=== PATIENT | male | born 1960 | race Caucasian/White ===

== ENCOUNTER 2017-12-18 15:47 | Outpatient (CLI) | payer MEDICARE, MEDICAID | END 2017-12-18 15:48 | disposition home or self-care (01) | LOC: BICRAD 15:47 | PROVIDERS: ATTEND Family Medicine | DX: J44.9 Chronic obstructive pulmonary disease, unspecified (principal); M25.512 Pain in left shoulder; M25.522 Pain in left elbow; M81.0 Age-related osteoporosis without current pathological fracture; M79.602 Pain in left arm; M19.012 Primary osteoarthritis, left shoulder | CPT/HCPCS: 71046 ==

== ENCOUNTER 2019-01-13 21:58 | Inpatient (IN) | payer MEDICARE, MEDICAID ==
[~2019-01-13 21:58] MED LIST: ISOVUE-370 76%-LOCM 1 ML ONE
[2019-01-13] MEDS ORDERED: Morphine 4 MG/ML VIAL ONE ×2 (22:18→23:35)
[2019-01-13] MEDS ORDERED: Ondansetron PF 4 MG/2 ML Vial ONE (22:18)
[2019-01-13 22:54] LABS: Hemoglobin 15.2 g/dL (14.0-18.0); Mean Corpuscular HGB CONC 34.1 g/dL (32.0-36.0); Mean Corpuscular Hemoglobin 33.6 pg (27.0-31.0); Mean Corpuscular Volume 98.5 fL (78.0-98.0); Platelet Count 276 thou/uL (130-400); RBC Distribution Width 12.1 % (11.5-14.5); Red Blood Cell (RBC) Count 4.53 mill/uL (4.70-6.10); White Blood Cell (WBC) Count 19.4 thou/uL (4.8-10.8)
[2019-01-13 23:16] LABS: Band 10 % (5-11); Lymphocytes 8 % (21-51); MDiff Complete? YES; Monocytes 5 % (0-10); Neutrophil 77 % (42-75)
[2019-01-13 23:17] LABS: ALT (SGPT) 20 U/L (8-55); AST (SGOT) 36 U/L (5-34); Albumin 3.8 g/dL (3.5-5.0); Alkaline Phosphatase 81 U/L (40-150); Anion Gap 15 mmol/L (10-20); BUN (Urea Nitrogen) 11 mg/dL (8.4-25.7); Bilirubin, Total 0.7 mg/dL (0.2-1.2); Calc. Creatinine Clearance 0 mL/min (70-130); Calcium 9.4 mg/dL (7.8-10.44); Carbon Dioxide 22 mmol/L (22-29); Chloride 102 mmol/L (98-107); Estimated GFR-MDRD 36; Globulin 3.7 g/dL (2.4-3.5); Glucose 104 mg/dL (70-105); Potassium 4.4 mmol/L (3.5-5.1); Protein, Total 7.5 g/dL (6.0-8.3); Sodium 135 mmol/L (136-145)
--- NOTE | 2019-01-13 23:24 | RAD ---
FRONTAL RADIOGRAPH CHEST: 01/13/2019 HISTORY: Fall. Trauma. Pain. FINDINGS: Mild increased linear interstitial density. No pneumothorax or pleural fluid. No lobar consolidatio n or alveolar edema. IMPRESSION: No radiographic evidence of acute cardiopulmonary disease. POS: OFF
--- NOTE | 2019-01-13 23:25 | RAD ---
RIGHT SHOULDER THREE VIEWS: 01/13/2019 HISTORY: Injury. Trauma. Pain. COMPARISON: None. FINDINGS: There is a markedly comminuted fracture with impaction involving the femoral head and neck. There ar e medially and laterally displaced fracture fragments. No evidence for dislocation. No widening of the AC or CC interspace. IMPRESSION: Impacted and markedly comminuted displaced humeral head/neck fracture. Orthopedic consultation advis ed. POS: OFF
--- NOTE | 2019-01-13 23:27 | RAD ---
RIGHT HIP TWO VIEWS: 01/13/2019 HISTORY: Fall. Trauma. Pain. COMPARISON: None. FINDINGS: There is a questionable nondisplaced fracture involving the inferior pubic ramus on the right. No evidence for dislocation of the right hip. There is a questionable fracture involving the medial aspect of the right acetabulum. IMPRESSION: Findings suspicious for a nondisplaced fracture involving the inferior pubic ramus on the right. Sub tle medial acetabular fracture suspected as well. CT advised POS: OFF
--- NOTE | 2019-01-13 23:29 | RAD ---
LUMBAR SPINE THREE VIEWS: 01/13/2019 HISTORY: Fall. Trauma. Pain. COMPARISON: None. FINDINGS: There is subtle cortical irregularity involving the anterior aspect of the L2 vertebral body, which c ould represent a subtle compression fracture. There is mild irregularity involving the anterior-supe rior corner of the L5 vertebral body, which could also represent a subtle compression fracture. Ther e is mild anterolisthesis at L4-L5, measuring approximately 3-4 mm. IMPRESSION: Possible fractures of L2 and L5. CT suggested. POS: OFF
--- NOTE | 2019-01-14 00:05 | CT ---
CT HEAD WITHOUT CONTRAST: 01/13/2019 HISTORY: Fall. Trauma. Pain. COMPARISON: None. TECHNIQUE: Axial CT imaging at 5 mm intervals, from the vertex through the skull base, without contrast. FINDINGS: The visualized paranasal sinuses and mastoid air cells are well aerated. There is no displaced enrrique rial fracture. No intracranial hemorrhage, midline shift, mass effect, or ventricular enlargement. IMPRESSION: No acute findings. POS: OFF
[2019-01-14] MEDS ORDERED: Dextrose 5% in Water 1,000 ML IV PRN (01:27)
[2019-01-14] MEDS ORDERED: Dextrose 50% Abboject 50 ML SYRINGE SLOW IVP PRN (01:27)
[2019-01-14] MEDS ORDERED: Morphine 2 MG/ML SYRINGE SLOW IVP PRN (01:27)
[2019-01-14] MEDS ORDERED: hydrALAZINE 20 MG/ML VIAL SLOW IVP PRN (01:27)
[2019-01-14] MEDS ORDERED: Ondansetron PF 4 MG/2 ML Vial IVP PRN (01:27)
[2019-01-14] MEDS ORDERED: Ondansetron ODT 4 MG TAB PO PRN (01:27)
[2019-01-14] MEDS: Acetaminophen 1,000 MG in Premix Bag 1 BAG IVPB SCH ×4 (02:27→21:11)
--- NOTE | 2019-01-14 03:14 | HP ---
REQUESTING PHYSICIAN: Dr. Mehta. CONSULTATIONS: 1. Orthopedics, Dr. West. 2. Neurosurgery, Dr. Pike. HISTORY OF PRESENT ILLNESS: The patient is a 58-year-old man who was reportedly working on the top of his trailer this evening when he fell landing on his right side. He denies any loss of consciousness, but states that he was unable to ambulate, so he had to crawl to where his phone was and was finally able to call for help. He was brought to the emergency department by ground EMS, where he underwent evaluation and examination and was noted to have fractures to his right shoulder right proximal humerus, pubic rami fracture and thoracic compression fracture, at which time we were asked to evaluate the patient for admission and obtain Orthopedic and Neurosurgical consultations. ALLERGIES: NONE. CURRENT MEDICATIONS: The patient does not remember his medications, but does remember the pharmacy and has his doctor's phone number. We will obtain these in the morning. PAST MEDICAL HISTORY: Hypertension, COPD, does not wear home oxygen, recent diagnosis of "skin cancer" to right shoulder, anxiety, depression, bipolar disorder. PAST SURGICAL HISTORY: Tonsillectomy. SOCIAL HISTORY: The patient smokes at most half a pack of cigarettes per day. Denies drug or alcohol use. He lives at home alone. He is unemployed due to disability. PHYSICAL EXAMINATION: VITAL SIGNS: Blood pressure 138/82, heart rate 73, respirations 20, oxygen saturation 100% on room air, temperature 98.9. GENERAL: The patient is resting comfortably in bed. He is awake, alert, and oriented x2. Atkinson Coma Scale is 15. The patient does have difficulty remembering his medical history, but otherwise again his Oliverio Coma Scale is 15. HEENT: Head is normocephalic, atraumatic. Eyes: Extraocular motions intact. PERRLA bilaterally. Ears are atraumatic without discharge. Nose atraumatic without discharge. Oropharynx is clear. NECK: Nontender, trachea is midline. No JVD. CHEST: Clear to auscultation with good inspiratory and expiratory effort. The patient did state that during his deep inspiration it did hurt his right shoulder. HEART: Regular rate and rhythm. ABDOMEN: Soft, flat, nontender with active bowel sounds. PELVIS: Stable with tenderness to palpation to the right side that radiates into his groin area consistent with his pubic rami fracture. EXTREMITIES: Neurovascularly intact x4. Right upper extremity shows abrasion, which incidentally overlies his biopsy site for his skin cancer. There is contusion noted to the right lateral thigh. BACK: By report is tender to palpation to the thoracolumbar area in the midline with also some muscle spasms noted. LABORATORY FINDINGS: White blood cell count 19.4, hemoglobin 15.2, hematocrit 44.7, platelets 27. Sodium 135, potassium 4.4, chloride 102, CO2 of 22, BUN 11, creatinine 1.91, glucose 104, total bilirubin 0.7, AST 36, ALT 20, alkaline phosphatase 81. RADIOGRAPHIC FINDINGS: 1. CT of the brain without contrast shows no acute findings. 2. CT of the C-spine without contrast shows no fracture subluxation or bony lesion. 3. CT of the chest, abdomen, and pelvis with IV contrast shows T11 and T12 with mild vertebral body compression fractures. In the pelvis, there is noted to be a right superior inferior pubic rami fracture. 4. Views of the right shoulder show the impacted and markedly comminuted displaced humeral head/neck fracture. 5. AP chest x-ray shows shows no radiographic evidence of acute pulmonary disease. 6. Views of the right hip show findings suspicious for a nondisplaced fracture involving the inferior pubic ramus on the right. There is a subtle medial acetabular fracture suspected as well. 7. Views of the lumbar spine show possible fractures of L2 and L5. Of note, these were not demonstrated on his CT. ASSESSMENT: 1. Status post fall from 10-15 feet. 2. Proximal humerus fracture. 3. T10 and 11 mild vertebral body compression fractures. 4. Right superior and inferior pubic rami fractures. 5. Contusions. 6. Acute pain secondary to above. PLAN: Plan will be to admit the patient to the surgical floor. We will keep him n.p.o. we will have orthopedics review his radiographs and his CTs to determine, if surgical intervention is needed. Per conversation with Neurosurgery, his compression fractures will be treated with a TLSO brace. The patient will have pain control, pulmonary toilet, gastritis and mechanical VTE prophylaxis. We will have the nurses reconcile his medicines in the morning certainly to see if he is taking any blood thinner should surgery be indicated. The evaluation, examination, laboratory, and radiographic findings will be discussed with Dr. Zavala after this dictation. Job ID: [id number]
[2019-01-14] MEDS ORDERED: Acetaminophen 1,000 MG in Premix Bag 1 BAG IVPB SCH (06:00)
[2019-01-14 07:04] LABS: #Basophils 0.1 thou/uL (0.0-0.2); #Eosinphils 0.2 thou/uL (0.0-0.7); #Lymphocytes 2.7 thou/uL (1.20-3.40); #Monocytes 0.9 thou/uL (0.11-0.59); #Neutrophils 6.4 thou/uL (1.40-6.50); %Basophils 0.5 % (0.0-1.0); %Eosinophils 1.7 % (0.0-10.0); %Lymphocytes 26.3 % (21.0-51.0); %Monocytes 8.7 % (0.0-10.0); %Neutrophils 62.9 % (42.0-75.0); Hemoglobin 13.2 g/dL (14.0-18.0); Mean Corpuscular HGB CONC 34.1 g/dL (32.0-36.0); Mean Corpuscular Hemoglobin 34.1 pg (27.0-31.0); Mean Platelet Volume 7.3 fL (7.4-10.4); Platelet Count 237 thou/uL (130-400); RBC Distribution Width 11.9 % (11.5-14.5); Red Blood Cell (RBC) Count 3.88 mill/uL (4.70-6.10); White Blood Cell (WBC) Count 10.2 thou/uL (4.8-10.8)
[2019-01-14 07:23] LABS: Anion Gap 13 mmol/L (10-20); BUN (Urea Nitrogen) 12 mg/dL (8.4-25.7); Calc. Creatinine Clearance 0 mL/min (70-130); Calcium 8.6 mg/dL (7.8-10.44); Carbon Dioxide 23 mmol/L (22-29); Chloride 103 mmol/L (98-107); Estimated GFR-MDRD 51; Glucose 101 mg/dL (70-105); Potassium 3.8 mmol/L (3.5-5.1); Sodium 135 mmol/L (136-145)
--- NOTE | 2019-01-14 07:38 | CT ---
PRELIMINARY REPORT/[facility]/EMERGENCY AFTER HOURS PROCEDURE: EXAM: CT Cervical Spine Without Contrast EXAM DATE/TIME: 01/13/2019 11:54 PM CLINICAL HISTORY: 58 years old, male; Injury or trauma; Initial encounter; Blunt trauma; Patient HX: Er26; No previous on pacs; M58 presents to ED with C/O R shoulder pain and R hip pain S/P falling off roof x1.5 hours p ta. EMS reports that PT was working on his roof when he slipped and fell off, approx. 10 feet. PT reports that he landed on his right side and did not hit head, negative loc. PT denies headache and neck chencho n. PT reports R arm pain and lower back pain. TECHNIQUE: Imaging protocol: Computed tomography images of the cervical spine without contrast. Coronal and sagi ttal reformatted images were created and reviewed. COMPARISON: No relevant prior studies available. FINDINGS: Vertebrae: No acute fracture. Normal alignment. Discs/Spinal canal/Neural foramina: Multilevel degenerative changes of the spine most notable at C6-7 with left neuroforaminal narrowing. Soft tissues: No acute findings. IMPRESSION: No acute fracture. Cervical spondylosis. Thank you for allowing us to participate in the care of your patient. Dictated and Authenticated by: Isidro Stewart MD 01/14/2019 1:01 AM Central Time ([place] & [place]) FINAL REPORT CT CERVICAL SPINE NONCONTRAST: DATE: 01/13/2019. TIME: Performed on an emergency basis at 2356 hours. HISTORY: Fall. Neck injury. FINDINGS: Agree with the preliminary report by Dr. Stewart from [facility]. No acute osseous abnormalitie s are demonstrated. There are degenerative changes throughout the cervical spine. POS: [facility]
--- NOTE | 2019-01-14 07:46 | CT ---
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 10 feet. PT reports that he landed on his right side and did not hit head, negative loc. PT denies headache and neck pain. PT reports R arm pain and lower back pain. TECHNIQUE: Imaging protocol: Axial computed tomography images of the chest with intravenous contrast. Coronal a nd sagittal reformatted images were created and reviewed. COMPARISON: No relevant prior studies available. FINDINGS: Lungs: No acute findings. No mass. No consolidation. Few small peripheral/perifissural nonspecific nodular opacities, probably benign. Pleural space: No pneumothorax. No pleural effusion. Heart: Normal heart size. Coronary calcifications. No pericardial effusion. Aorta: No acute findings. No aortic aneurysm. Lymph nodes: No significant adenopathy. Bones/joints: Mild acute T12 and possible T11 vertebral body compression fractures. No spinal canal narrowing. Degenerative changes of the spine. Right humeral neck displaced fracture. Soft tissues: No acute findings. IMPRESSION: Mild acute T12 and possible T11 vertebral body compression fractures. Right humeral neck displaced fr acture. Coronary calcifications. THIS REPORT CONTAINS FINDINGS THAT MAY BE CRITICAL TO PATIENT CARE. The findings were verbally communicated via telephone conference with Bita Mehta at 12:51 AM CDT on 01/14/2019. The findings were acknowledged and understood. 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 EMS reports that PT was working on his roof when he slipped and fell off, approx. 10 feet. PT reports that he landed on his right side and did not hit head, negative loc. PT denies headache and neck pain. PT reports R arm pain and lower back pain. TECHNIQUE: Imaging protocol: Axial computed tomography images of the abdomen and pelvis with intravenous contras t. Coronal and sagittal reformatted images were created and reviewed. COMPARISON: No relevant prior studies available. Atherosclerotic calcifications. No aortic aneurysm. FINDINGS: Liver: No acute findings. No mass. Gallbladder and bile ducts: No calcified stones. No ductal dilation. Pancreas: No acute findings. No mass. No ductal dilation. Spleen: No acute findings. No mass. Adrenals: No acute findings. No mass. Kidneys and ureters: No acute findings. No mass. No hydronephrosis. Left renal cortical cyst. Stomach and bowel: No obstruction. Appendix: No evidence of appendicitis. Intraperitoneal space: No free air. Vasculature: No acute findings. No abdominal aortic aneurysm. Lymph nodes: No significant lymphadenopathy. Bladder: No acute findings. Reproductive: No acute findings. Bones/joints: Nondisplaced acute fractures of the right superior and inferior pubic rami. Minimal adj acent intrapelvic hemorrhage. Soft tissues: No acute findings. IMPRESSION: Right superior and inferior pubic rami fractures. Otherwise no acute findings. Thank you for allowing us to participate in the care of your patient. Dictated and Authenticated by: Isidro Stewart MD 01/14/2019 1:20 AM Central Time ([place] & [place]) FINAL REPORT CT CHEST WITH IV CONTRAST CT ABDOMEN AND PELVIS WITH IV CONTRAST CT THORACIC SPINE NONCONTRAST CT LUMBAR SPINE NONCONTRAST: DATE: 01/13/2019. TIME: Performed on an emergency basis at 2358 hours. HISTORY: Fall. Chest injury. Abdomen injury. Back injury. FINDINGS: Agree with the preliminary report by Dr. Stewart from [facility]. Comminuted fracture of the ri ght humeral head and neck. Nondisplaced fractures of the right pubic rami. Minimal compression of t he T12 vertebral body. Possible acute fracture. Age-indeterminate. Possible involvement of T11. POS: [facility]
--- NOTE | 2019-01-14 08:01 | CON ---
DATE OF CONSULTATION: This is Crys Aldrich PA-C dictating a report for Jovanny Pike MD. HISTORY OF PRESENT ILLNESS: The patient is a 58-year-old male, who presented to the emergency department after a fall off the top of his trailer, which was approximately 10 to 15 feet. The patient reports landed on the right side. Denies any LOC. He was evaluated with trauma scans and was found to have a right proximal humerus fracture, right superior and inferior pubic rami fractures, T10 and T11 mild compression fractures, and cortical irregularities at T9, T10, L2, and L5. The patient did not have any neuro deficits per the ER team and was admitted by the Trauma Service for further management of his injuries. Neurosurgery was consulted for evaluation of these compression fractures. I visited the patient in the ER for further evaluation of these injuries. PAST MEDICAL HISTORY: Hypertension, COPD, anxiety, depression, and bipolar disorder. PAST SURGICAL HISTORY: Tonsillectomy. SOCIAL HISTORY: The patient smokes half pack per day. Does not drink or use any drugs. Lives at home and alone. ALLERGIES: HE HAS NO KNOWN DRUG ALLERGIES. PHYSICAL EXAMINATION: CONSTITUTIONAL: The patient is awake, alert, in no acute distress. He is resting comfortably in the bed. He has a GCS of 15. HEENT: Head; normocephalic, atraumatic. Eyes; PERRLA. Extraocular movements intact. ENT; oral mucosa is pink, intact, and moist. He has normal voice. NECK: Nontender to palpation. Free active range of motion. No meningismus or nuchal rigidity. CARDIAC: Regular rate and rhythm. PULMONARY: Symmetric chest expansion. No evidence of dyspnea. MUSCULOSKELETAL: He has some abrasions over the right shoulder region. Does have pain with range of motion of the right upper extremity. However, he has no focal neurologic deficits that are appreciated in any of the extremities. His reflexes are intact. NEURO: A and O x4. No focal neurologic deficits are appreciated. ASSESSMENT AND PLAN: This is a 58-year-old male, status post fall [address] head and C-spine were negative for acute injuries. He was found to have T11 and T12 compression fractures on CT chest, abdomen, and pelvis. He is also noted to have some irregularity on L-spine x-rays at L2 and L5. I also appreciate some slight irregularities at T9 and T10. I feel that these are likely counter sales representative of degenerative changes rather than acute injury. For his T11 and T12 compression fractures, we will plan to treat with TLSO bracing. He should wear the brace for all out of bed activities. I have advised that he can take it off when he is in bed and to shower. We will plan to follow up with the patient in approximately 4 weeks with repeat set of x-rays. Please reach out to Neurosurgery for additional questions or concerns. Job ID: [id number]
[2019-01-14] MEDS: Sodium Chloride 0.9% 1,000 ML IV SCH ×3 (08:11→18:05)
--- NOTE | 2019-01-14 08:22 | CON ---
DATE OF CONSULTATION: 01/14/2019 This is Nely Castillo PA-C dictating a report for Raúl West MD. REQUESTING PHYSICIAN: Trauma Services. CONSULTING PHYSICIAN: Raúl West MD. REASON FOR CONSULTATION: Right proximal humerus fracture and right inferior and superior pubic rami fracture. HISTORY OF PRESENT ILLNESS: This is a 58-year-old gentleman who was cleaning the gutters on the top of his trailer yesterday evening when he fell landing on to his right side. The fall was approximately 10-15 feet. No loss of consciousness at that time, but was unable to ambulate, so he had to crawl to the phone in order to call for help. Upon workup in our emergency facility, the patient was found to have right proximal humerus fracture, right pubic rami fracture, and thoracic compression fractures. We have been consulted for the right proximal humerus fracture and the right pubic rami fracture. Currently at bedside, the patient states he has a great deal of pain in his right shoulder and is unable to put weight on his right leg. He denies any numbness or tingling. He denies any history of previous surgeries to either of these joints. He states he is ambidextrous, mainly uses his left hand. PAST MEDICAL HISTORY: Hypertension, COPD, recent diagnosis of skin cancer to right shoulder, anxiety, depression, bipolar disorder, and cirrhosis of the liver. PAST SURGICAL HISTORY: Tonsillectomy. SOCIAL HISTORY: The patient states that he is trying to quit smoking and uses a patch, although he does smoke slightly less than a pack of cigarettes a day, former heavy alcohol use, quit in 2013. Lives at home alone, unemployed secondary to disability. ALLERGIES: NONE. FAMILY HISTORY: Reviewed and noncontributory. PHYSICAL EXAMINATION: VITAL SIGNS: Blood pressure 138/82, heart rate 73, respirations 20, oxygen saturation 100% on room air, and temperature of 98.9. GENERAL: The patient is awake and alert. He is resting comfortably in bed. He is pleasant and converses well upon physical examination. HEENT: Head is normocephalic and atraumatic. NECK: Supple. Trachea midline. LUNGS: Breathing is nonlabored. EXTREMITIES: The right lower extremity is evaluated. The patient does have pain upon any movement passive or active. Range of motion specifically not assessed in the hip. The patient is able to move his all toes and move his ankle. Distal neurovascular status is intact. Skin is intact. Evaluation of the right upper extremity shows tenderness to palpation along the proximal humerus. Range of motion not assessed in the shoulder. The patient is able to flex and extend at the wrist and move all digits. Distal neurovascular status is intact. Left upper and left lower extremities also evaluated. No obvious deformities or injuries are noted. IMAGING STUDIES: Radiographic findings including views of the right shoulder show an impacted and comminuted displaced humeral head and neck fracture. Views of the right hip are suspicious for fracture involving the pubic rami, however, after further evaluation with a CT evaluation, this is felt that the fracture actually is a nondisplaced acetabulum fracture. Films reviewed with Dr. West. ASSESSMENT: 1. Right nondisplaced acetabulum fracture. 2. Right proximal humerus fracture involving head and neck. PLAN: At this time, the patient's right acetabulum fracture will be nonoperative. We will keep the patient nonweightbearing to the right lower extremity in order to allow this to heal. No surgical intervention is anticipated for this fracture. With regard to the right shoulder, this is a markedly comminuted and displaced fracture. This will need a reverse total shoulder replacement in the future, however, we will allow this to heal in order to have bone stalk for this surgery in the near future. We will place the patient in a sling to the right upper extremity for comfort. Pain control. We will plan to follow him as an outpatient and schedule a reverse total shoulder replacement as an outpatient in the future. The patient will be nonweightbearing to the right upper extremity as well. He may weightbear on the left side and work on [id number] transfers with physical therapy. No surgical intervention is anticipated at this hospital stay. Plan of care discussed in length with the patient at this time. He verbalized understanding. Job ID: [id number]
[2019-01-14] MEDS ORDERED: Famotidine 20 MG TAB ONE (10:56)
[2019-01-14] MEDS: Famotidine 20 MG TAB PO SCH (11:00)
[2019-01-14] MEDS ORDERED: Morphine 4 MG/ML VIAL ONE (11:15)
[2019-01-14] MEDS ORDERED: Ondansetron PF 4 MG/2 ML Vial ONE (11:15)
[2019-01-14] MEDS: Morphine 4 MG/ML VIAL SLOW IVP PRN ×2 (11:30→21:11)
[2019-01-14 14:16] VITALS: BMI 36.5
[2019-01-14] MEDS ORDERED: CEFAZOLIN 2 GM, IV Admixture Fee-Chemo 1 UNITS in Sodium Chloride 0.9% 100 ML IVPB SCH (16:15)
[2019-01-14 17:54] LABS: INR-International Normal Ratio 1.1; Prothrombin Time 14.4 SEC (12.0-14.7)
[2019-01-14] MEDS ORDERED: traMADol HCl 50 MG TAB PO PRN (18:12)
--- NOTE | 2019-01-14 19:17 | PRG ---
DATE OF SERVICE: 01/14/2019 SUBJECTIVE: This is a 58-year-old gentleman, who presented to the emergency room after fall off top of his trailer approximately 10 to 15 feet. The patient was diagnosed with right humeral fracture, T11-T12 compression fracture, right rami fracture. The patient has been evaluated by Neurosurgery Crys NORTH and decision is to treat T11-T12 compression fracture with TLSO brace. Orthopedic, MARY ANNE Mckay, evaluated the patient and decided the patient to go to the OR to fix right humeral fracture. Upon arrival, the patient appeared to have acute distress due to the pain of the right humeral fracture. Vital signs stable. GCS 15. He has been transferred to surgical floor awaiting for ortho surgery. OBJECTIVE: CONSTITUTIONAL: The patient is alert and awake, in minimal distress. GCS 15. PULMONARY: Breath sounds clear bilaterally on auscultation. Chest rise equal bilaterally. CARDIAC: Regular rate and rhythm. ABDOMEN: Soft and nondistended. Normal bowel sounds. EXTREMITIES: Right extremity, limited range of motion due to pain. Lower extremities, neurovascularly intact, normal range of motion. Left upper extremity, neurovascularly intact, normal range of motion. Right extremity, neurovascularly intact, but T11-T12 tender to touch LABORATORY DATA: White count 10.2, hemoglobin 13.2. Chemistry; sodium 135, potassium 3.8, creatinine 1.43. DIAGNOSES: 1. Status post fall from trailer. 2. Right humeral fracture. 3. T11-T12 compression fracture, conservative treatment by Neurosurgery. 4. Right rami fracture. 5. Acute kidney disease, mild. PLAN: Continue hydration. Continue pain control. The patient will go to the OR and have right humeral fracture fixed later today by Orthopedic. DVT prophylaxis tomorrow after surgery, gastritis prophylaxis upon arrival. Continue to follow up kidney function. Consult Orthopedic on pelvic fracture. Job ID: [id number] [facility]
[2019-01-14] MEDS: Gabapentin 100 MG CAP PO SCH (21:11)
[2019-01-15] MEDS: traMADol HCl 50 MG TAB PO SCH ×4 (00:09→17:17)
--- NOTE | 2019-01-15 03:04 | PRG ---
DATE OF SERVICE: 01/15/2019 SUBJECTIVE: The patient is currently on the surgical floor. He is status post fall from a trailer of about 10-15 feet landing on his right side. He sustained a fracture of his proximal humerus, T10-11 mild vertebral compression fracture and right superior inferior pubic rami fracture. The patient is currently awaiting surgical intervention of his right humerus fracture. His vertebral body fracture is going to be will be treated with a TLSO brace. The patient had no issues today. Currently, he is resting comfortably in bed. His shoulder is his only complaint at this time. PHYSICAL EXAMINATION: GENERAL: The patient is resting comfortably. He is awake, alert, responsive and appropriate. VITAL SIGNS: Stable. The patient is afebrile. LUNGS: Clear to auscultation with good inspiratory and expiratory effort. The patient states that when he takes a deep breath it does make his shoulder hurt. HEART: Regular rate and rhythm. ABDOMEN: Soft, flat with active bowel sounds. EXTREMITIES: Neurovascularly intact x4. PLAN: Will be to make the patient n.p.o. after midnight. Continue his pain management pulmonary toilet, gastritis, mechanical, VTE prophylaxis postoperatively. Begin work with Physical and Occupational Therapy and discuss placement. Job ID: [id number]
[2019-01-15] MEDS: Morphine 4 MG/ML VIAL SLOW IVP PRN (04:10)
[2019-01-15] MEDS: Sodium Chloride 0.9% 1,000 ML IV SCH ×2 (04:10→14:37)
[2019-01-15 05:03] LABS: #Eosinphils 0.4 thou/uL (0.0-0.7); #Lymphocytes 1.4 thou/uL (1.20-3.40); #Monocytes 0.8 thou/uL (0.11-0.59); #Neutrophils 7.8 thou/uL (1.40-6.50); %Basophils 0.3 % (0.0-1.0); %Eosinophils 4.2 % (0.0-10.0); %Monocytes 7.3 % (0.0-10.0); %Neutrophils 75.2 % (42.0-75.0); Hemoglobin 11.4 g/dL (14.0-18.0); Mean Corpuscular HGB CONC 33.2 g/dL (32.0-36.0); Mean Corpuscular Hemoglobin 33.5 pg (27.0-31.0); Mean Platelet Volume 7.3 fL (7.4-10.4); Platelet Count 181 thou/uL (130-400); RBC Distribution Width 11.8 % (11.5-14.5); Red Blood Cell (RBC) Count 3.41 mill/uL (4.70-6.10); White Blood Cell (WBC) Count 10.4 thou/uL (4.8-10.8)
[2019-01-15 05:22] LABS: Anion Gap 11 mmol/L (10-20); BUN (Urea Nitrogen) 11 mg/dL (8.4-25.7); Calc. Creatinine Clearance 128 mL/min (70-130); Carbon Dioxide 25 mmol/L (22-29); Chloride 104 mmol/L (98-107); Estimated GFR-MDRD 82; Glucose 94 mg/dL (70-105); Magnesium 1.7 mg/dL (1.6-2.6); Phosphorus 2.3 mg/dL (2.3-4.7); Potassium 3.6 mmol/L (3.5-5.1); Sodium 136 mmol/L (136-145)
[2019-01-15] MEDS: Acetaminophen 500 MG TAB PO SCH ×2 (05:39→14:39)
[2019-01-15] MEDS ORDERED: Fentanyl 100 MCG/2 ML VIAL ONE ×2 (06:47→06:56)
[2019-01-15] MEDS ORDERED: Midazolam HCl 2 mg/2 ml Vial ONE ×2 (06:47→06:56)
[2019-01-15] MEDS ORDERED: ceFAZolin Sodium (SDC) 2 GM/100 ML BAG ONE (06:47)
[2019-01-15] MEDS ORDERED: Acetaminophen 1,000 MG in Premix Bag 1 BAG IVPB SCH (07:15)
[2019-01-15] MEDS ORDERED: Promethazine HCl 25 MG/ML VIAL IM PRN ×2 (08:21→10:23)
[2019-01-15] MEDS ORDERED: HYDROcodone/Acetaminophen 10/325 mg Tablet PO PRN ×2 (08:21)
[2019-01-15] MEDS ORDERED: traMADol HCl 50 MG TAB PO PRN ×2 (08:21)
[2019-01-15] MEDS ORDERED: Ondansetron PF 4 MG/2 ML Vial IVP PRN (08:21)
[2019-01-15] MEDS ORDERED: Ropivacaine 0.2% 550 ML 550 ML NERVE BLCK SCH (08:21)
[2019-01-15] MEDS ORDERED: Zolpidem Tartrate 5 MG TAB PO PRN (08:21)
[2019-01-15] MEDS ORDERED: Fentanyl 100 MCG/2 ML VIAL IV PRN (08:22)
[2019-01-15] MEDS: Senokot S 8.6-50 MG TAB PO SCH ×2 (10:07→22:02)
[2019-01-15] MEDS: Polyethylene Glycol 3350 17 GM Packet PO SCH (10:07)
[2019-01-15] MEDS: Famotidine 20 MG TAB PO SCH ×2 (10:07→21:51)
[2019-01-15] MEDS: Gabapentin 100 MG CAP PO SCH ×2 (10:07→14:37)
[2019-01-15] MEDS ORDERED: Promethazine HCl 25 MG/ML VIAL SLOW IVP PRN (10:23)
[2019-01-15] MEDS ORDERED: Ondansetron HCl/PF 4 MG/2 ML Vial IVP PRN (10:23)
--- NOTE | 2019-01-15 12:24 | RAD ---
SINGLE VIEW RIGHT SHOULDER: Date: 01/15/19 COMPARISON: None. HISTORY: Right shoulder arthroplasty. FINDINGS: Single view of the right shoulder shows the patient to be status post right shoulder arthroplasty wit hout perihardware lucency or fracture. Overlying skin shanti are from recent surgery. IMPRESSION: Status post right shoulder arthroplasty without evidence of complication. POS: [facility]
[2019-01-15] MEDS: CEFAZOLIN 2 GM, Admixture Fee 1 EACH in Sodium Chloride 0.9% 100 ML IVPB SCH ×2 (15:44→22:02)
--- NOTE | 2019-01-15 16:28 | EKG ---
Test Reason : PREOP Blood Pressure : / mmHG Vent. Rate : 077 BPM Atrial Rate : 077 BPM P-R Int : 162 ms QRS Dur : 082 ms QT Int : 394 ms P-R-T Axes : 057 005 043 degrees QTc Int : 445 ms Normal sinus rhythm Normal ECG No previous ECGs available Confirmed by JULIANNE PICKETT, DR. Gonzáles ([id number]) on 01/15/2019 4:28:27 PM Referred By: ELOISA Confirmed By:DR. Eliecer WHITAKER MD
--- NOTE | 2019-01-15 16:48 | PRG ---
DATE OF SERVICE: 01/15/2019 SUBJECTIVE: This is a 58-year-old gentleman who presented to the emergency room after fall off from his trailer. The patient was diagnosed with right humeral fracture, T11-T12 compression fracture, right rami fracture. He had an ORIF on right humerus fracture today this morning. Postop, he is a little bit confused , but he is able to answer basic questions. Vitals signs stable. His thoracic fracture is treated with TLSO brace by Neurosurgery. Pelvic fracture is treated with conservative treatment. The patient has a history of depression and bipolar. He does not remember, which medication he took at home. Nurse is calling his pharmacy to obtain his medicine records. OBJECTIVE: CONSTITUTIONAL: The patient is alert and awake, in minimal distress. GCS 14. A little bit confused, but still able to answer correct basic information. RESPIRATORY: Breath sounds clear bilaterally. Chest rise equal bilaterally. CARDIAC: Regular rate and rhythm. ABDOMEN: Abdomen is soft and nondistended. Normal bowel sounds. EXTREMITIES: Right extremity is on sling, neurovascularly intact. Both lower extremity, normal range of motion, neurovascularly intact. Left extremity, normal range of motion, neurovascularly intact. NEUROLOGY: No focal neurology deficits. DIAGNOSES: 1. Status post fall from a trailer. 2. Right humeral fracture, postoperative open reduction and internal fixation day 0. 3. T11-T12 compression fracture, conservative treatment by Neurosurgery. 4. Right rami fracture, conservative treatment by Orthopedics. 5. Acute kidney disease, mild, resolved despite alcoholism withdrawal. PLAN: Continue pain control. Continue DVT and gastritis prophylaxis. Obtain medicine reconcile. Consult with Dr. Rajput on treating him with alcoholism withdrawal. Dr Rajput agreed with the plan Job ID: [id number] [facility]
[2019-01-15] MEDS ORDERED: Diazepam 5 MG TAB PO PRN (16:52)
[2019-01-15] MEDS ORDERED: Acetaminophen/Codeine 30-300mg Tablet PO PRN (16:52)
[2019-01-15] MEDS ORDERED: Ropivacaine 0.5% HCl/PF (150 MG/30 ML VIAL) ONE (16:56)
[2019-01-15] MEDS ORDERED: Ropivacaine 0.2% HCl/PF (40 MG/20 ML VIAL) ONE (16:56)
--- NOTE | 2019-01-15 16:56 | RAD ---
SINGLE VIEW RIGHT SHOULDER: Date: 01/15/19 HISTORY: Fall after surgery. COMPARISON: 01/15/19 and 01/13/19. FINDINGS: A single view of the right shoulder shows the patient to be status post right shoulder arthroplasty. There is a comminuted fracture of the proximal aspect of the humerus, but this fracture was likely pr esent prior to the arthroplasty. This has not changed significantly compared to the prior exam. The h umeral stem that is cemented shows no fracture surrounding the stem. The glenoid component of the pro sthesis is intact without focal abnormality. Overlying skin shanti are from recent surgery. IMPRESSION: Stable postoperative changes of the right shoulder status post arthroplasty. The comminuted fracture likely represents a fracture seen prior to the arthroplasty. POS: [facility]
--- NOTE | 2019-01-15 17:01 | OP ---
DATE OF PROCEDURE: 01/15/2019 OPERATION: Right reverse shoulder arthroplasty. PREOPERATIVE DIAGNOSIS: Right proximal humerus fracture with comminution. POSTOPERATIVE DIAGNOSIS: Right proximal humerus fracture with comminution. COMPLICATIONS: None. ESTIMATED BLOOD LOSS: 200 mL. DRY WALL FINISHER: Dr. Raúl West. IMPLANTS: Tornier Reverse Shoulder arthroplasty, size 29 mm standard base plate, 42-mm standard Glenosphere, reversed fracture stem size 13 mm x 130 mm, cemented, and 42-mm retentive +6 mm poly with a 9 mm spacer. INDICATIONS: Mr. Sanchez is a 58-year-old male who fell from a roof. He fractured his proximal humerus. He had a highly comminuted fracture with poor bone quality. He was indicated for reverse shoulder arthroplasty to restore the ability to use the arm and provide pain relief. Risks have been reviewed as well as benefits. Risks to include instability, pain, scarring, nerve or vascular injury, infection, and others. DESCRIPTION OF OPERATION: Mr. Sanchez was identified in the preoperative holding area. His correct extremity was marked. He was carried to the operating room. He was positioned supine. General anesthesia was induced. A multidisciplinary time-out was performed. The right upper extremity was prepped and draped in a sterile fashion. We began the procedure with a deltopectoral approach to the shoulder. We dissected down through the subcutaneous tissues to the deltopectoral fascia, which was opened. We then identified the cephalic vein. This was retracted laterally. We developed the deltopectoral interval. This allowed exposure to the deep tissues. We elevated the clavipectoral fascia and placed our self-retaining retractor. We released 1 cm of pec insertion. At this point, we performed a biceps tenotomy and then tenodesed the biceps tendon distally. We then elevated the subscapularis with a abhilash of bone. This was retracted medially. We elevated the greater tuberosity, which was fractured as well with the intact rotator cuff. At this point, we removed the humeral head, which was in multiple fragments. At this point, we proceeded to expose the glenoid. We cleared the glenoid cartilage as well as labral tissue. We placed our central pin. We over-reamed the pin. At this point, we then placed our large central screw through our base plate. We then placed a superior and an inferior screw in the glenoid. We had a very secure fit with good screw purchase. We then impacted a 42-mm Glenosphere. The screw was tightened appropriately. Next, we dislocated the humerus and exposed the proximal humerus. We then prepared the canal. We reamed up to a size 15 reamer. We accepted this for a size 13-mm cemented stem. We placed our cement restrictor. We then mixed cement on the back table and cemented our stem in appropriate position using the pectoralis insertion for height. Next, we trialed. A +9 poly gave the best stability. We used our 6-mm buildup in our poly component. This was again reduced. We checked stability. There was full range of motion. No impingement. The shoulder could not be easily dislocated. We thoroughly irrigated with copious lavage. At this point, we began closure. We closed the tuberosities together with a #5 Ethibond suture. This was also repaired down to the humerus. This restored the anatomy of the tuberosities. We then closed the superficial tissues in layers. A sterile dressing was applied. The patient was taken to the recovery room in good condition. Job ID: [id number]
[2019-01-15] MEDS ORDERED: PHENYLEPHRINE-NS 100 MCG/ML 10 ML SYRINGE ONE (17:12)
[2019-01-15] MEDS ORDERED: Rocuronium Bromide 10 MG/ML (10ML VIAL) ONE (17:12)
[2019-01-15] MEDS ORDERED: Ondansetron PF 4 MG/2 ML Vial ONE (17:12)
[2019-01-15] MEDS ORDERED: Ketorolac Tromethamine 30 MG/ML VIAL ONE (17:12)
[2019-01-15] MEDS ORDERED: ePHEDrine 50 MG/ML VIAL ONE (17:12)
[2019-01-15] MEDS ORDERED: Lidocaine 1% PF 5 ML VIAL ONE (17:12)
[2019-01-15] MEDS ORDERED: PROPOFOL 200 MG/20 ML VIAL ONE (17:12)
[2019-01-15] MEDS: Ibuprofen 600 MG TAB PO SCH (17:17)
[2019-01-15] MEDS ORDERED: Melatonin 3 MG TAB PO SCH (21:00)
[2019-01-15] MEDS ORDERED: Oxazepam 10 MG CAP PO SCH (21:00)
[2019-01-15] MEDS: cloNIDine 0.1 MG TAB PO SCH (21:50)
[2019-01-15] MEDS: Acetaminophen 325 MG TAB PO SCH (21:50)
[2019-01-15] MEDS: Gabapentin 300 MG CAP PO SCH (21:51)
[2019-01-15] MEDS: Cyclobenzaprine 10 MG TAB PO SCH (21:51)
[2019-01-15] MEDS: Oxazepam 10 MG CAP PO SCH (21:53)
[2019-01-16] MEDS: Ibuprofen 600 MG TAB PO SCH ×4 (00:15→17:18)
[2019-01-16] MEDS: traMADol HCl 50 MG TAB PO SCH ×2 (00:15→06:04)
--- NOTE | 2019-01-16 02:41 | PRG ---
DATE OF SERVICE: SUBJECTIVE: The patient is currently on the surgical floor. He was admitted status post a fall from a trailer of about 10 to 15 feet, when he landed on his right side, the patient sustained a right proximal humerus fracture, T10 and 11 vertebral compression fracture, and a right superior-inferior pubic rami fracture. His vertebral fractures are being treated with a TLSO brace. His pubic rami fractures are being treated nonoperatively. The patient underwent a right reverse shoulder arthroplasty today for his humerus fracture. By report, he tolerated this procedure well. His pain is currently controlled, and the nurses report that he is resting comfortably. They state that he has just fallen asleep and they ask that I not awaken him. OBJECTIVE: VITAL SIGNS: Stable. He is afebrile. GENERAL: The patient is resting comfortably in bed and appears in no discomfort. His breathing appears nonlabored. ASSESSMENT/PLAN: 1. Status post fall from trailer. 2. Status post right shoulder arthroplasty. 3. Compression fractures of T10 and 11, treated with TLSO brace. 4. Right inferior and superior pubic rami fractures, treated nonoperatively. Plan will be to continue supportive care, pain management, physical and occupational therapy, and begin working on placement. Job ID: [id number]
[2019-01-16 05:25] LABS: #Eosinphils 0.5 thou/uL (0.0-0.7); #Lymphocytes 1.2 thou/uL (1.20-3.40); #Monocytes 0.8 thou/uL (0.11-0.59); #Neutrophils 6.8 thou/uL (1.40-6.50); %Basophils 0.3 % (0.0-1.0); %Lymphocytes 13.3 % (21.0-51.0); %Monocytes 8.2 % (0.0-10.0); %Neutrophils 73.3 % (42.0-75.0); Hemoglobin 10.2 g/dL (14.0-18.0); Mean Corpuscular HGB CONC 33.1 g/dL (32.0-36.0); Mean Corpuscular Hemoglobin 33.6 pg (27.0-31.0); Mean Platelet Volume 7.8 fL (7.4-10.4); Platelet Count 171 thou/uL (130-400); RBC Distribution Width 11.7 % (11.5-14.5); Red Blood Cell (RBC) Count 3.03 mill/uL (4.70-6.10); White Blood Cell (WBC) Count 9.2 thou/uL (4.8-10.8)
[2019-01-16 05:45] LABS: Anion Gap 10 mmol/L (10-20); BUN (Urea Nitrogen) 12 mg/dL (8.4-25.7); Calc. Creatinine Clearance 142 mL/min (70-130); Carbon Dioxide 27 mmol/L (22-29); Chloride 102 mmol/L (98-107); Estimated GFR-MDRD Greater than 90; Glucose 96 mg/dL (70-105); Magnesium 1.7 mg/dL (1.6-2.6); Phosphorus 2.5 mg/dL (2.3-4.7); Potassium 3.9 mmol/L (3.5-5.1); Sodium 135 mmol/L (136-145)
[2019-01-16] MEDS: Acetaminophen 325 MG TAB PO SCH ×3 (06:04→22:10)
[2019-01-16] MEDS: CEFAZOLIN 2 GM, Admixture Fee 1 EACH in Sodium Chloride 0.9% 100 ML IVPB SCH ×2 (06:06→14:27)
[2019-01-16] MEDS: Thiamine 100 MG TAB PO SCH (08:16)
[2019-01-16] MEDS: FLUoxetine HCl 20 MG CAP PO SCH (08:16)
[2019-01-16] MEDS: cloNIDine 0.1 MG TAB PO SCH ×4 (08:16→21:09)
[2019-01-16] MEDS: Magnesium Chloride 64 MG TAB PO SCH ×2 (08:16→20:55)
[2019-01-16] MEDS: Polyethylene Glycol 3350 17 GM Packet PO SCH (08:17)
[2019-01-16] MEDS: PHOS-NAK 1 PKT PACK PO SCH ×2 (08:17→20:54)
[2019-01-16] MEDS: Oxazepam 10 MG CAP PO SCH ×4 (08:17→21:18)
[2019-01-16] MEDS: Amlodipine 5 MG TAB PO SCH (08:17)
[2019-01-16] MEDS: Bupropion 150 MG XL TAB PO SCH (08:17)
[2019-01-16] MEDS: Gabapentin 300 MG CAP PO SCH (08:17)
[2019-01-16] MEDS: Cyclobenzaprine 10 MG TAB PO SCH ×3 (08:17→20:52)
[2019-01-16] MEDS: Famotidine 20 MG TAB PO SCH ×2 (08:17→20:52)
[2019-01-16] MEDS: Senokot S 8.6-50 MG TAB PO SCH ×2 (08:17→20:54)
[2019-01-16] MEDS: Folic Acid 1 MG TAB PO SCH (08:17)
[2019-01-16] MEDS ORDERED: Acetaminophen/Codeine 30-300mg Tablet PO PRN (09:00)
[2019-01-16] MEDS ORDERED: Folic Acid 1 MG TAB PO SCH (09:00)
[2019-01-16] MEDS ORDERED: Spironolactone 25 MG TAB PO SCH (09:00)
[2019-01-16] MEDS ORDERED: Gabapentin 300 MG CAP PO SCH (10:14)
[2019-01-16] MEDS ORDERED: Gabapentin 100 MG CAP PO SCH (10:30)
[2019-01-16] MEDS: Acetaminophen/Codeine 30-300mg Tablet PO SCH ×2 (14:20→20:52)
[2019-01-16] MEDS: Gabapentin 100 MG CAP PO SCH ×2 (14:26→20:52)
--- NOTE | 2019-01-16 19:05 | PRG ---
DATE OF SERVICE: 01/16/2019 SUBJECTIVE: This is a 58-year-old gentleman, who comes to the emergency room after fall off from his trailer. He was diagnosed with right humeral fracture, T11-T12 compression fracture, right ramus fracture. He underwent ORIF on right humerus fracture. Postop, the patient is a little bit unstable and shaking. He has been resumed on psychiatric medicine including depression medication, bipolar medication. He has been treated for his alcohol withdrawal. He has participated little with Physical Therapy and Occupational Therapy. Physical Therapy recommends to place in halfway facility to improve self-care functioning. OBJECTIVE: GENERAL: The patient is alert and awake, in minimal distress. GCS 14. A little bit confused, but able to answer correct questions. RESPIRATORY: Breath sounds clear bilaterally. CHEST: Rise equal bilaterally. CARDIAC: Regular rate and rhythm. ABDOMEN: Soft, nondistended. Normal bowel sounds. EXTREMITIES: Right extremity is on sling. Dressing is clean, intact. NEUROVASCULAR: Intact. NEUROLOGIC: No focal neurological deficits. DIAGNOSES: Status post fall from trailer; right humeral fracture; postoperative open reduction and internal fixation day 1; T11-T12 compression fracture, conservative treatment per Neurosurgery; right rami fracture, conservative treatment per Orthopedic; and alcoholism withdrawal. PLAN: Continue pain control. Continue DVT and gastrointestinal prophylaxis. Continue working with PT/OT. telephone sex worker is working on his placement. The patient was seen and evaluated with Dr. Rajput this morning. Job ID: [id number]
[2019-01-16] MEDS: Enoxaparin Sodium 40 MG/0.4 ML SYRINGE SC SCH (20:54)
[2019-01-17] MEDS: Ibuprofen 600 MG TAB PO SCH ×5 (00:36→23:39)
[2019-01-17 04:34] LABS: Anion Gap 9 mmol/L (10-20); BUN (Urea Nitrogen) 12 mg/dL (8.4-25.7); Calc. Creatinine Clearance 147 mL/min (70-130); Calcium 8.3 mg/dL (7.8-10.44); Carbon Dioxide 30 mmol/L (22-29); Chloride 103 mmol/L (98-107); Estimated GFR-MDRD Greater than 90; Glucose 91 mg/dL (70-105); Phosphorus 2.9 mg/dL (2.3-4.7); Potassium 3.5 mmol/L (3.5-5.1); Sodium 138 mmol/L (136-145)
[2019-01-17] MEDS: Acetaminophen 325 MG TAB PO SCH ×3 (05:33→21:13)
--- NOTE | 2019-01-17 07:02 | PRG ---
DATE OF SERVICE: 01/17/2019 SUBJECTIVE: The patient is currently on the surgical floor. He is status post fall from a trailer roof of approximately 10 to 15 feet. He sustained a right proximal humerus comminuted fracture and he has undergone a right shoulder arthroplasty for that yesterday. He also has sustained a compression fracture of T10 and T11 that is being treated with a TLSO brace, pubic rami fracture that is being treated nonoperatively. The patient is doing well. He started working with Physical and Occupational therapy, albeit slowly. The patient reports that he is tolerating a diet and his pain is controlled. He is just very sore all over. OBJECTIVE: VITAL SIGNS: Stable. The patient is afebrile. GENERAL: The patient is resting comfortably in bed. He is still requiring oxygen and due to that we will repeat a chest x-ray in the morning. The patient does have COPD, but at home he did not require oxygen. LUNGS: Scattered rhonchi bilaterally. Clears with cough. HEART: Regular rate and rhythm. ABDOMEN: Soft, flat, nontender with active bowel sounds. EXTREMITIES: Neurovascularly intact x4. Postop dressing is clean, dry, and intact. ASSESSMENT AND PLAN: 1. Status post fall from trailer of approximately 10 to 15 feet. 2. Status post right shoulder arthroplasty. 3. Compression fractures of T10 and T11, treated with a TLSO brace. 4. Right inferior and superior pubic rami fractures treated nonoperatively. Plan will be to continue supportive care, physical and occupational therapy. Discuss placement with the patient. We will also get a chest x-ray this morning. We will also add DuoNeb's to his medications. Job ID: [id number]
[2019-01-17] MEDS ORDERED: PHOS-NAK 1 PKT PACK PO SCH (07:45)
--- NOTE | 2019-01-17 08:14 | RAD ---
EXAM: Single view of the chest HISTORY: Fall; COPD COMPARISON: 01/13/2019 FINDINGS: Single view of the chest shows a normal sized cardiomediastinal silhouette. There is no junior dence of consolidation, mass, or pleural effusion. Patient has a right shoulder arthroplasty. Degenerative changes are seen in the spine. IMPRESSION: No evidence of acute cardiopulmonary disease
[2019-01-17] MEDS: Polyethylene Glycol 3350 17 GM Packet PO SCH (09:51)
[2019-01-17] MEDS: PHOS-NAK 1 PKT PACK PO SCH ×2 (09:51→09:54)
[2019-01-17] MEDS: Acetaminophen/Codeine 30-300mg Tablet PO SCH ×4 (09:51→21:11)
[2019-01-17] MEDS: Famotidine 20 MG TAB PO SCH ×2 (09:51→20:14)
[2019-01-17] MEDS: Bupropion 150 MG XL TAB PO SCH (09:52)
[2019-01-17] MEDS: Senokot S 8.6-50 MG TAB PO SCH ×2 (09:52→20:14)
[2019-01-17] MEDS: Gabapentin 100 MG CAP PO SCH ×3 (09:52→20:14)
[2019-01-17] MEDS: Folic Acid 1 MG TAB PO SCH (09:53)
[2019-01-17] MEDS: Potassium Chloride 20 MEQ TAB PO SCH ×2 (09:53→17:42)
[2019-01-17] MEDS: Cyclobenzaprine 10 MG TAB PO SCH ×3 (09:53→20:14)
[2019-01-17] MEDS: FLUoxetine HCl 20 MG CAP PO SCH (09:53)
[2019-01-17] MEDS: Thiamine 100 MG TAB PO SCH (09:53)
[2019-01-17] MEDS: Amlodipine 5 MG TAB PO SCH (09:53)
[2019-01-17] MEDS: Oxazepam 10 MG CAP PO SCH ×4 (09:59→20:14)
[2019-01-17] MEDS: cloNIDine 0.1 MG TAB PO SCH ×4 (10:50→20:27)
[2019-01-17] MEDS ORDERED: Magnesium Chloride 64 MG TAB PO SCH (11:00)
[2019-01-17] MEDS: Magnesium Chloride 64 MG TAB PO SCH (12:43)
--- NOTE | 2019-01-17 16:43 | PRG ---
DATE OF SERVICE: 01/17/2019 This is James Cornelius PA-C dictating a report for Philipp Rajput DO. SUBJECTIVE: This is a 58-year-old gentleman, who came to the emergency room after a fall from his trailer. He sustained right humerus fracture, T11-T12 compression fracture, and right ramus fracture. He underwent ORIF of right humerus fracture. Postop day 2, today the patient is doing better than yesterday. He is more alert. Pain is well controlled at rest and excruciating on activity. The patient is tolerated with his regular diet. He developed no fever or shortness of breath. He desired to go to rehabilitation facility. OBJECTIVE: GENERAL: The patient is lying down in bed, comfortable, in no acute distress. Alert and awake. GCS 15. VITAL SIGNS: Temperature 98.8, heart rate 82, respiratory rate 20, O2 saturation 92% on 3 L, and blood pressure 121/66. RESPIRATORY: Breath sounds are clear bilaterally. Chest rise are equal bilaterally. CARDIAC: Regular rate and rhythm. ABDOMEN: Soft and nondistended. Normal bowel sounds. EXTREMITIES: Right extremity is on sling. Dress is clean and intact, neurovascularly intact. NEUROLOGY: No focal neurology deficits. DIAGNOSES: 1. Status post fall from his trailer. 2. Right humeral fracture postop open reduction and internal fixation day 2. 3. T11-T12 compression fracture, conservative treatment using TLSO brace. 4. Right ramus fracture, conservative treatment. PLAN: Continue pain control. Continue DVT and gastritis prophylaxis. Continue to work with PT and OT. Electro Mechanical Designer working for the patient's placement. The patient was seen and evaluated with Dr. Rajput this morning. Job ID: [id number]
[2019-01-17] MEDS: Enoxaparin Sodium 40 MG/0.4 ML SYRINGE SC SCH (20:15)
[2019-01-18] MEDS ORDERED: Lorazepam 2 MG/ML VIAL SLOW IVP SCH (01:15)
--- NOTE | 2019-01-18 01:38 | PRG ---
DATE OF SERVICE: 01/18/2019 SUBJECTIVE: The patient is currently on the surgical floor. He is status post fall from a trailer approximately 10 to 15 feet in which he sustained a right proximal humerus fracture, compression fractures of T11 and T12, and the right pubic rami fracture. The patient has undergone open reduction and internal fixation of his right humerus fracture. He is postop day #3 from that and his bilateral knees are being treated with a TLSO brace. The pubic rami fractures are being treated nonoperatively. The patient reportedly was able to work with Physical and Occupational therapy today, though this evening the nurses report that he become a little bit confused. They are able to reorient him as far as his location, otherwise, he appears to be tolerating a diet. He had no complaints of pain today. Upon my visit, the patient was resting comfortably in bed, but he did appear somewhat confused, primarily his location, but he was calm and otherwise appropriate. OBJECTIVE: VITAL SIGNS: Stable. The patient is afebrile. LUNGS: Clear to auscultation. HEART: Regular rate and rhythm. ABDOMEN: Soft, flat, and nontender with active bowel sounds. EXTREMITIES: The patient moves all 4 extremities. ASSESSMENT: 1. Status post fall from trailer of approximately 10 to 15 feet. 2. Status post right shoulder arthroplasty. 3. Compression fractures of T11 and T12, being treated with a TLSO brace. PLAN: Plan will be to continue supportive care. We will resume all of his home medications. Encourage physical and occupational therapy and await final placement decision. Job ID: [id number]
[2019-01-18] MEDS: Acetaminophen/Codeine 30-300mg Tablet PO SCH ×4 (04:18→21:31)
[2019-01-18] MEDS: Ibuprofen 600 MG TAB PO SCH ×4 (05:50→23:15)
[2019-01-18] MEDS: Acetaminophen 325 MG TAB PO SCH ×3 (05:50→21:34)
[2019-01-18] MEDS: Budesonide 0.5 MG/2 ML NEB INH SCH ×2 (06:49→19:22)
[2019-01-18] MEDS: Bupropion 150 MG XL TAB PO SCH (08:56)
[2019-01-18] MEDS: Oxazepam 10 MG CAP PO SCH ×4 (08:56→21:31)
[2019-01-18] MEDS: cloNIDine 0.1 MG TAB PO SCH ×4 (08:56→21:23)
[2019-01-18] MEDS: Cyclobenzaprine 10 MG TAB PO SCH ×3 (08:56→21:33)
[2019-01-18] MEDS: Thiamine 100 MG TAB PO SCH (08:56)
[2019-01-18] MEDS: Potassium Chloride 20 MEQ TAB PO SCH ×2 (08:56→09:06)
[2019-01-18] MEDS: Senokot S 8.6-50 MG TAB PO SCH ×2 (08:56→21:33)
[2019-01-18] MEDS: FLUoxetine HCl 20 MG CAP PO SCH (08:56)
[2019-01-18] MEDS: Gabapentin 300 MG CAP PO SCH ×3 (08:57→21:31)
[2019-01-18] MEDS: Folic Acid 1 MG TAB PO SCH (08:57)
[2019-01-18] MEDS: Famotidine 20 MG TAB PO SCH ×2 (08:58→21:34)
[2019-01-18] MEDS: Amlodipine 5 MG TAB PO SCH (08:59)
[2019-01-18] MEDS: Polyethylene Glycol 3350 17 GM Packet PO SCH (09:00)
--- NOTE | 2019-01-18 14:16 | PRG ---
DATE OF SERVICE: 01/18/2019 SUBJECTIVE: This is a 58-year-old gentleman, who comes in to the emergency room after a fall from his trailer. He sustained right humerus fracture, T11-T12 compression fracture and right ramus fracture. He underwent ORIF right humerus fracture. Other injury was treated conservatively. Postop day 3 today, he is doing better. His pain is well controlled. He is tolerating his regular diet. He developed no fever or shortness of breath. OBJECTIVE: GENERAL: The patient is lying down in bed comfortably in no acute distress. Alert and awake. GCS 15. VITAL SIGNS: Temperature 97.6, heart rate 80, respiratory rate 16, O2 saturation 93% on room air, and blood pressure 107/64. LUNGS: Clear bilaterally. HEART: Regular rate and rhythm. ABDOMEN: Soft, nondistended. EXTREMITIES: Right upper extremity is on sling. Postop dressing is clean, dry, and intact. Neurovascularly intact. NEUROLOGIC: No focal neurology deficits. DIAGNOSES: 1. Status post fall from his trailer. 2. Right humerus fracture, postop open reduction and internal fixation day 3, T11-T12 compression fracture, conservative treatment using TLSO brace. 3. Right ramus fracture. Conservative treatment, stable. PLAN: Continue pain control. Continue DVT and gastritis prophylaxis. Continue to work with PT and OT. playground worker is working for patient placement in rehabilitation facility. The patient was seen and evaluated with Dr. Rajput this morning. Job ID: [id number]
[2019-01-18] MEDS: Enoxaparin Sodium 40 MG/0.4 ML SYRINGE SC SCH (21:33)
[2019-01-18] MEDS ORDERED: Melatonin 3 MG TAB PO PRN (22:34)
[2019-01-18] MEDS: Zolpidem Tartrate 5 MG TAB PO PRN (23:15)
--- NOTE | 2019-01-19 01:56 | PRG ---
DATE OF SERVICE: SUBJECTIVE: The patient remains on the surgical floor, he is status post fall from a trailer of approximately 10 to 15 feet. He sustained a right proximal humerus fracture and compression fractures of in addition to right pubic rami fractures. The patient underwent open reduction and internal fixation of his humerus fracture and he is postop day 3 from this. His compression fractures are being treated with a TLSO brace and pubic rami fractures are being treated nonoperatively. The patient has been working with Physical and Occupational Therapy. By report, he had a better day today regarding his confusion. He is tolerating a diet. His pain is controlled. OBJECTIVE: VITAL SIGNS: Stable. The patient is afebrile. GENERAL: The patient is resting comfortably in bed. He is awake and conversant. He does have some episodes of confusion regarding his location and wanting to leave, but he is able to be reoriented relatively quickly. The patient follows simple commands and answers basic questions. LUNGS: Clear to auscultation with good inspiratory and expiratory effort. HEART: Regular rate and rhythm. ABDOMEN: Soft, flat, and nontender with active bowel sounds. EXTREMITIES: Neurovascularly intact x4. Postop dressing is clean, dry, and intact. ASSESSMENT/PLAN: 1. Status post fall from trailer approximately 10 to 15 feet. 2. Status post right shoulder arthroplasty. 3. Compression fractures of . Plan will be to continue supportive care, encourage physical and occupational therapy, TLSO brace as instructed, and await placement decision. Job ID: [id number]
[2019-01-19] MEDS: Acetaminophen/Codeine 30-300mg Tablet PO SCH ×4 (05:38→20:16)
[2019-01-19] MEDS: Acetaminophen 325 MG TAB PO SCH ×5 (05:42→23:59)
[2019-01-19] MEDS: Budesonide 0.5 MG/2 ML NEB INH SCH ×2 (06:23→18:04)
[2019-01-19] MEDS: Ibuprofen 600 MG TAB PO SCH ×4 (06:48→23:10)
[2019-01-19] MEDS: Polyethylene Glycol 3350 17 GM Packet PO SCH (09:52)
[2019-01-19] MEDS: Cyclobenzaprine 10 MG TAB PO SCH ×3 (09:52→20:16)
[2019-01-19] MEDS: cloNIDine 0.1 MG TAB PO SCH ×4 (09:52→20:18)
[2019-01-19] MEDS: Bupropion 150 MG XL TAB PO SCH (09:52)
[2019-01-19] MEDS: Oxazepam 10 MG CAP PO SCH ×4 (09:52→20:34)
[2019-01-19] MEDS: FLUoxetine HCl 20 MG CAP PO SCH (09:53)
[2019-01-19] MEDS: Gabapentin 300 MG CAP PO SCH ×3 (09:53→20:17)
[2019-01-19] MEDS: Thiamine 100 MG TAB PO SCH (09:53)
[2019-01-19] MEDS: Senokot S 8.6-50 MG TAB PO SCH ×2 (09:53→20:18)
[2019-01-19] MEDS: Folic Acid 1 MG TAB PO SCH (09:53)
[2019-01-19] MEDS: Amlodipine 5 MG TAB PO SCH (09:54)
[2019-01-19] MEDS: Famotidine 20 MG TAB PO SCH (10:54)
--- NOTE | 2019-01-19 14:56 | PRG ---
DATE OF SERVICE: 01/19/2019 SUBJECTIVE: The patient is sitting up in bed, eating breakfast upon entry to the room. He states that his pain is about 3/10 in his right shoulder. The patient has no other complaints at this time. The patient is status post fall from a trailer of about 10 to 15 feet of height. He sustained a right proximal humerus fracture and compression fractures of T11 - T12 and pelvic fracture, which is nonoperative. The patient underwent an open reduction and internal fixation of his right humerus fracture and is postop day 3 of this. The patient has a TLSO brace for his compression fractures to the T-spine. The patient is working with Physical Therapy and Occupational Therapy. We will follow their recommendations. We are awaiting placement decision for Mr. Sanchez either to rehab or long-term facility. His pain is adequately controlled at this time. His confusion is much better today as he knows where he is and is sitting up talking, more arousable than yesterday. OBJECTIVE: VITAL SIGNS: Temperature 98, pulse 73, respiratory rate 16, oxygen saturation 92 on room air, and blood pressure 120/72. GENERAL: The patient is in no acute distress. Awake and alert and oriented x3. LUNGS: Clear to auscultation bilaterally. No respiratory distress. Good respiratory effort. HEART: Regular rate and rhythm. No murmurs, gallops, or rubs. ABDOMEN: Soft, nontender with bowel sounds positive. EXTREMITIES: Postop dressing is clean, dry, and intact. Neurovascularly intact. No focal neurologic deficits. In's and out's, intake 580 mL, output 1200 mL. The patient voiding and stooling. LABORATORY: Last CBC on 01/16/2019, hemoglobin 10.3 and hematocrit 30.8. Last metabolic panel on 01/17/2019, sodium 138, potassium 3.5, creatinine 0.83, phosphorus 2.9, and magnesium 2.0. ASSESSMENT: 1. Status post fall from top of a trailer of approximately 10 to 15 feet of height. 2. Status post right shoulder arthroplasty from a right humeral head fracture. 3. Compression fractures of T11 and T12 being managed with a TLSO brace. 4. Pubic ramus fractures treated nonoperatively, nonweightbearing. PLAN: To encourage more physical and occupational therapy, movement for the patient. Awaiting placement for a rehab facility to continue to encourage and support healing of the patient's traumatic injuries. Job ID: [id number] [facility]
[2019-01-19] MEDS: Enoxaparin Sodium 40 MG/0.4 ML SYRINGE SC SCH (20:18)
--- NOTE | 2019-01-19 21:32 | PRG ---
DATE OF SERVICE: 01/19/2019 SUBJECTIVE: The patient was seen this evening during evening rounds. He reported pain was well controlled with his current pain regimen, but occasionally had breakthrough pain. States that he is tolerating a regular diet and was able to work with Physical and Occupational Therapy today. Reports that Therapy team was very happy and impressed with his current progress today. Reported having bowel movements and voiding without difficulties. He did have questions about the exact operative procedure completed on his right upper extremity and would like to speak with Orthopedic Surgery team tomorrow if possible. OBJECTIVE: VITAL SIGNS: The patient is afebrile and hemodynamically stable, requiring no nasal cannula oxygen. GENERAL: No acute distress, middle-aged male. LUNGS: Equal breath sounds bilaterally. Clear breath sounds bilaterally. No signs of acute respiratory distress. CARDIAC: Regular rate and rhythm. No murmurs, gallops, or rubs. GI: Abdomen is soft, nontender, nondistended. EXTREMITIES: Right upper extremity with dressing in place. It is clean, dry, and intact. 2+ pulses in all extremities. No significant swelling noted. ASSESSMENT: 1. Status post fall from trailer about 10 to 15 feet. 2. T11 and T12 compression fractures. 3. Right-sided pubic rami fracture. 4. Right humeral head fracture, status post right shoulder arthroplasty. 5. History of daily alcohol use, hypertension, and chronic pain. PLAN: We will continue with current plan from Day team. We will have Day team discuss with Orthopedic Surgery to pay a visit to the patient to explain the exact operative procedure. Nursing asked to check total daily Tylenol intake as they were concerned it exceeded the maximum. Did recalculate and it does not exceed the 4 g daily total. The patient is anxious about going to rehab, but he is agreeable. Job ID: [id number] [facility]
[2019-01-19] MEDS: Zolpidem Tartrate 5 MG TAB PO PRN (23:10)
[2019-01-20] MEDS: Acetaminophen/Codeine 30-300mg Tablet PO SCH ×2 (05:03→11:33)
[2019-01-20] MEDS: Ibuprofen 200 MG TAB PO SCH ×2 (05:50→12:30)
[2019-01-20] MEDS: Acetaminophen 325 MG TAB PO SCH ×2 (05:51→15:55)
[2019-01-20] MEDS: Budesonide 0.5 MG/2 ML NEB INH SCH (06:50)
[2019-01-20 11:02] VITALS: TEMP 98
[2019-01-20] MEDS: cloNIDine 0.1 MG TAB PO SCH ×2 (11:32→15:55)
[2019-01-20] MEDS: Polyethylene Glycol 3350 17 GM Packet PO SCH (11:32)
[2019-01-20] MEDS: Bupropion 150 MG XL TAB PO SCH (11:33)
[2019-01-20] MEDS: FLUoxetine HCl 20 MG CAP PO SCH (11:34)
[2019-01-20] MEDS: Folic Acid 1 MG TAB PO SCH (11:34)
[2019-01-20] MEDS: Amlodipine 5 MG TAB PO SCH (11:35)
[2019-01-20] MEDS: Oxazepam 10 MG CAP PO SCH ×2 (11:35→14:30)
[2019-01-20] MEDS: Thiamine 100 MG TAB PO SCH (11:35)
[2019-01-20] MEDS: Senokot S 8.6-50 MG TAB PO SCH (11:35)
[2019-01-20] MEDS: Cyclobenzaprine 10 MG TAB PO SCH ×2 (11:35→15:55)
[2019-01-20] MEDS: Gabapentin 300 MG CAP PO SCH ×2 (11:36→15:55)
[2019-01-20 15:09] VITALS: BP 142/84
--- NOTE | 2019-01-21 09:47 | DIS ---
DATE OF ADMISSION: 01/14/2019 DATE OF DISCHARGE: 01/20/2019 RESIDENT: Chinyere Zarco DO TRAUMA SURGEON: Dr. Philipp Rajput. Pt seen and examined by Dr. Rajput on morning rounds. Plan for discharge discussed with Dr. Rajput. CONSULTS: 1. Case Management, routine. 2. Neurosurgery, Dr. Pike. 3. Orthopedics, Dr. West. 4. OT and PT evaluation. 5. [facility]. 6. Rehab Screening PROCEDURES PERFORMED: Right proximal humerus fracture, reverse shoulder arthroplasty done on 01/15/[address] West and Dr[address] Lira. DIAGNOSES: 1. Fall from height of 10 to 15 feet. 2. Right humeral head fracture, status post right shoulder arthroplasty. 3. Compression fractures of T11 and T12. 4. Pubic ramus fracture. 5. Altered mentation, improved. DISCHARGE MEDICATIONS: 1. Acetaminophen 325 p.o. q.8 hours. 2. Amlodipine 5 mg p.o. daily. 3. Budesonide 0.5 mg inhaled b.i.d. 4. Bupropion 300 mg daily. 5. Clonidine 0.1 mg p.o. b.i.d. 6. Flexeril 10 mg p.o. t.i.d. 7. Lovenox 40 mg subcu once daily. 8. Fluoxetine 40 mg p.o. daily. 9. Folic acid 1 mg p.o. daily. 10. Gabapentin 300 mg p.o. t.i.d. 11. Hydralazine 20 mg/mL slow IVP q.6 hours p.r.n. 12. Ibuprofen 600 mg p.o. q.6 hours. 13. DuoNeb 3 mL nebulizers q.6 hours. 14. Melatonin 3 mg p.o. at bedtime. 15. Zofran 4 mg IVP q.6 hours p.r.n. 16. Oxazepam 10 mg p.o. q.i.d. 17. MiraLAX 17 g p.o. daily. 18. Phenergan 12.5 mg q.4 hours two pills daily. 19. Docusate sodium/senokot one tab p.o. b.i.d. 20. Thiamine 100 mg p.o. daily. 21. Ambien 5 mg p.o. at bedtime p.r.n. 22. Aspirin 325 mg p.o. daily. DISCONTINUED MEDICATIONS: None. HISTORY OF PRESENT ILLNESS/HOSPITAL COURSE: The patient is a 58-year-old male, who was brought into the emergency department after falling from about 10-15 feet high on the top of his trailer. The patient was found to have right humeral head fracture, which underwent operation by Dr. Lira for right reverse shoulder arthroplasty. T11-T12 compression fractures being managed by TLSO brace. Pubic ramus fractures, which are nonoperative to be managed by nonweightbearing status. The patient is doing well. Pain well controlled, passing gas, making good urine and making good progress with rehab on a daily basis. Recommending rehab inpatient at [facility]. DISPOSITION: The patient is stable upon discharge to inpatient rehab. Pain well controlled. DISCHARGE INSTRUCTIONS: 1. Location: Inpatient rehab. 2. Diet: Regular diet. 3. Activity: Orthopedic restrictions and nonweightbearing to the right lower extremity, wear TLSO brace for all out of bed activities, may remove for showering, continue physical therapy and occupational therapy. 4. Followup: Followup with Dr. Pike, outpatient in 4 weeks for x-rays. Followup with Dr. Lira for right reverse shoulder arthroplasty procedure in 2 weeks. Job ID: [id number] [facility]
== END 2019-01-20 16:01 | DRG 483 ==
LOC: ERS 21:58 → ERHOLD 01-14 01:27 → SURG A 01-14 13:17
PROVIDERS: ADMIT Surgery; ATTEND Surgery
PROC: 0RRJ00Z Replacement of Right Shoulder Joint with Reverse Ball and Socket Synthetic Substitute, Open Approach (ICD-10-PCS; principal; 2019-01-15)
DX: S42.201A Unspecified fracture of upper end of right humerus, initial encounter for closed fracture (principal); S32.511A Fracture of superior rim of right pubis, initial encounter for closed fracture; S22.080A Wedge compression fracture of T11-T12 vertebra, initial encounter for closed fracture; W17.89XA Other fall from one level to another, initial encounter; I10 Essential (primary) hypertension; J44.9 Chronic obstructive pulmonary disease, unspecified; F41.9 Anxiety disorder, unspecified; N28.9 Disorder of kidney and ureter, unspecified; G89.29 Other chronic pain; F10.20 Alcohol dependence, uncomplicated; F31.9 Bipolar disorder, unspecified; C44.602 Unspecified malignant neoplasm of skin of right upper limb, including shoulder; K74.60 Unspecified cirrhosis of liver; F17.210 Nicotine dependence, cigarettes, uncomplicated; Y93.89 Activity, other specified; Y92.89 Other specified places as the place of occurrence of the external cause; Y99.9 Unspecified external cause status; Z99.81 Dependence on supplemental oxygen
CPT/HCPCS: 36415; 70450; 71045; 71260; 72100; 72125; 74177; 80048; 80053; 83735; 84100; 85025; 85610; 86850; 86900; 86901; 93005; 93010; 94640; 96361; 96374; 96375; 96376; A4306; C1713; J0131; J0690; J1650; J1885; J2001; J2060; J2250; J2270; J2405; J2704; J2795; J3010; J3490; J7620; J7626; Q9966

== ENCOUNTER 2020-10-31 10:00 | Outpatient (CLI) | payer MEDICARE, MEDICAID | END 2020-10-31 10:01 | disposition home or self-care (01) | LOC: BICMRI 10:00 | PROVIDERS: ATTEND Otolaryngology | DX: M47.22 Other spondylosis with radiculopathy, cervical region (principal); G89.4 Chronic pain syndrome; M51.16 Intervertebral disc disorders with radiculopathy, lumbar region; M48.02 Spinal stenosis, cervical region; M47.26 Other spondylosis with radiculopathy, lumbar region; M48.061 Spinal stenosis, lumbar region without neurogenic claudication | CPT/HCPCS: 72141; 72148 ==